=== PATIENT | male | born 1975 | race Two or more races ===

== ENCOUNTER 2025-01-31 21:06 | Emergency (ER) | payer OTHER ==
[~2025-01-31] VITALS: Ht 190.5 cm; Wt 104.5 kg
[2025-01-31 21:59] VITALS: TEMP 98.205296
[2025-01-31 22:24] LABS: PLATELET COUNT (AUTO) 402 K/uL (150-450); RED BLOOD CELL COUNT(AUTO) 4.64 MIL/uL (4.50-5.90); RED CELL DISTRIBUTION WIDTH 13.2 % (11.5-14.5); WHITE BLOOD COUNT (AUTO) 12.8 K/uL (4.5-11.0)
[2025-01-31 22:37] LABS: CALCIUM, TOTAL 9.2 mg/dL (8.8-10.5); CREATININE 2.14 mg/dL (0.60-1.30); GLOMERULAR FILTR. RATE CALC 33 mL/min (>60); GLUCOSE,RANDOM 101 mg/dL (70-110); SODIUM SERUM 143 mmol/L (136-145); UREA NITROGEN, BLOOD 15 mg/dL (7-18)
[2025-01-31 22:38] LABS: TROPONIN I-HIGH SENSITIVITY 75 ng/L (<76)
[2025-01-31 22:59] VITALS: BP 160/95; PULSE 78; RESP 15; O2SAT 100
[2025-01-31 23:42] LABS: TROPONIN I-HIGH SENSITIVITY 60 ng/L (<76)
== END 2025-01-31 23:51 ==
LOC: EMS 21:10
DX: I10 Essential (primary) hypertension (principal); E78.00 Pure hypercholesterolemia, unspecified; F12.90 Cannabis use, unspecified, uncomplicated
CPT/HCPCS: 80048; 84484; 85025; 93005; 99284

== ENCOUNTER 2025-03-04 11:29 | Inpatient (IN) | payer OTHER, MEDICAID ==
[~2025-03-04] VITALS: Ht 190.5 cm; Wt 105.8 kg
[2025-03-04 12:08] LABS: PLATELET COUNT (AUTO) 393 K/uL (150-450); RED BLOOD CELL COUNT(AUTO) 4.33 MIL/uL (4.50-5.90); RED CELL DISTRIBUTION WIDTH 12.4 % (11.5-14.5); WHITE BLOOD COUNT (AUTO) 8.8 K/uL (4.5-11.0)
[2025-03-04 12:15] LABS: CALCIUM, TOTAL 8.7 mg/dL (8.8-10.5); CREATININE 1.88 mg/dL (0.60-1.30); GLOMERULAR FILTR. RATE CALC 38 mL/min (>60); GLUCOSE,RANDOM 102 mg/dL (70-110); SODIUM SERUM 140 mmol/L (136-145); UREA NITROGEN, BLOOD 12 mg/dL (7-18)
[2025-03-04 12:25] LABS: TROPONIN I-HIGH SENSITIVITY 83 ng/L (<76)
[2025-03-04] MEDS: POTASSIUM CHLORIDE 20 MEQ ER TABLET PO ONE (12:38)
[2025-03-04] MEDS: ASPIRIN 325 MG TABLET PO ONE (12:38)
[2025-03-04] MEDS ORDERED: ACETAMINOPHEN 325 MG TABLET PO PRN (13:30)
[2025-03-04] MEDS ORDERED: ONDANSETRON HCL 4 MG/2 ML VIAL IVP PRN (13:30)
[2025-03-04] MEDS: ATORVASTATIN CALCIUM 40 MG TABLET PO ONE (13:32)
[2025-03-04 13:58] LABS: TROPONIN I-HIGH SENSITIVITY 83 ng/L (<76)
[2025-03-04] MEDS: HEPARIN SODIUM,PORCINE 5,000 UNITS/ML VIAL SQ SCH (15:10)
[2025-03-04 15:57] LABS: TROPONIN I-HIGH SENSITIVITY 80 ng/L (<76)
[2025-03-04 17:11] VITALS: BP 137/102; PULSE 71; RESP 17; TEMP 98.2; O2SAT 99
[2025-03-04 19:51] LABS: TROPONIN I-HIGH SENSITIVITY 69 ng/L (<76)
[2025-03-04 20:05] VITALS: BP 148/109; PULSE 69; RESP 19; TEMP 97.9; O2SAT 94
[2025-03-04] MEDS: DOCUSATE SODIUM 100 MG CAPSULE PO SCH (20:49)
[2025-03-04] MEDS: SODIUM CHLORIDE 0.9% 1,000 ML IV ONE (22:47)
[2025-03-04 23:58] VITALS: BP 125/85; PULSE 62; RESP 18; TEMP 97.7; O2SAT 99
[2025-03-05 04:11] VITALS: BP 135/92; PULSE 64; RESP 18; TEMP 97.3; O2SAT 97
[2025-03-05 07:16] LABS: PLATELET COUNT (AUTO) 337 K/uL (150-450); RED BLOOD CELL COUNT(AUTO) 3.86 MIL/uL (4.50-5.90); RED CELL DISTRIBUTION WIDTH 12.7 % (11.5-14.5); WHITE BLOOD COUNT (AUTO) 5.8 K/uL (4.5-11.0)
[2025-03-05 07:18] LABS: CALCIUM, TOTAL 8.2 mg/dL (8.8-10.5); CREATININE 1.58 mg/dL (0.60-1.30); GLOMERULAR FILTR. RATE CALC 46.0 mL/min (>60); GLUCOSE,RANDOM 80.0 mg/dL (70-110); SODIUM SERUM 142.0 mmol/L (136-145); UREA NITROGEN, BLOOD 12.0 mg/dL (7-18)
[2025-03-05] MEDS: ATORVASTATIN CALCIUM 40 MG TABLET PO SCH (08:16)
[2025-03-05] MEDS: ASPIRIN 81 MG CHEWABLE TABLET PO SCH (08:16)
[2025-03-05 08:46] VITALS: BP 125/89; PULSE 58; RESP 19; TEMP 98; O2SAT 98
[2025-03-05 11:46] VITALS: BP 129/86; PULSE 63; RESP 18; TEMP 97.8; O2SAT 100
[2025-03-05 14:57] VITALS: BP 137/96; PULSE 67; RESP 19; TEMP 98; O2SAT 98
[2025-03-05 20:00] VITALS: BP 152/96; PULSE 65; RESP 18; TEMP 99; O2SAT 97
[2025-03-05 20:22] VITALS: BP 156/89; PULSE 65; RESP 19; TEMP 98.2; O2SAT 100
[2025-03-05] MEDS: PB/HYOSCY/ATR/SCOP/LIDO/MAALOX 55 ML BOTTLE PO ONE (20:28)
[2025-03-06] VITALS (8 sets, daily range): BP systolic 145–165; BP diastolic 86–114; PULSE 63–89; RESP 18–20; TEMP 97.5–98.4; O2SAT 94–100
[2025-03-06 05:51] LABS: PLATELET COUNT (AUTO) 361 K/uL (150-450); RED BLOOD CELL COUNT(AUTO) 4.14 MIL/uL (4.50-5.90); RED CELL DISTRIBUTION WIDTH 12.9 % (11.5-14.5); WHITE BLOOD COUNT (AUTO) 7.1 K/uL (4.5-11.0)
[2025-03-06 06:01] LABS: CALCIUM, TOTAL 8.7 mg/dL (8.8-10.5); CREATININE 1.78 mg/dL (0.60-1.30); GLOMERULAR FILTR. RATE CALC 40.0 mL/min (>60); GLUCOSE,RANDOM 84.0 mg/dL (70-110); SODIUM SERUM 140.0 mmol/L (136-145); UREA NITROGEN, BLOOD 15.0 mg/dL (7-18)
[2025-03-06] MEDS: NITROGLYCERIN 2% (1 GM=INCH) OINTMENT PACKET TP SCH (16:26)
[2025-03-06] MEDS: SODIUM CHLORIDE 0.9% 500 ML IV ONE (16:26)
[2025-03-06] MEDS: PB/HYOSCY/ATR/SCOP/LIDO/MAALOX 55 ML BOTTLE PO ONE (21:56)
[2025-03-07] VITALS (16 sets, daily range): BP systolic 122–181; BP diastolic 83–108; PULSE 56–79; RESP 16–20; TEMP 98.1–98.8; O2SAT 95–99
[2025-03-07 06:21] LABS: CALCIUM, TOTAL 8.5 mg/dL (8.8-10.5); CREATININE 1.62 mg/dL (0.60-1.30); GLOMERULAR FILTR. RATE CALC 45.0 mL/min (>60); GLUCOSE,RANDOM 87.0 mg/dL (70-110); SODIUM SERUM 140.0 mmol/L (136-145); UREA NITROGEN, BLOOD 12.0 mg/dL (7-18)
[2025-03-07 07:26] LABS: PLATELET COUNT (AUTO) 398 K/uL (150-450); RED BLOOD CELL COUNT(AUTO) 4.01 MIL/uL (4.50-5.90); RED CELL DISTRIBUTION WIDTH 12.8 % (11.5-14.5); WHITE BLOOD COUNT (AUTO) 6.6 K/uL (4.5-11.0)
[2025-03-07] MEDS ORDERED: IOHEXOL 300 MG/ML 100 ML VIAL ONE (12:02)
[2025-03-07] MEDS ORDERED: VERAPAMIL HCL 2.5 MG/ML 2 ML VIAL ONE (12:02)
[2025-03-07] MEDS ORDERED: SODIUM BICARBONATE 50 MEQ/50 ML VIAL ONE (12:02)
[2025-03-07] MEDS ORDERED: LIDOCAINE/PF 1% 30 ML VIAL ONE (12:02)
[2025-03-07] MEDS ORDERED: HEPARIN SODIUM 1000 UNITS/NS 1,000 ML ONE (12:03)
[2025-03-07] MEDS ORDERED: NITROGLYCERIN 50 MG/D5% WATER 250 ML ONE (12:03)
[2025-03-07] MEDS ORDERED: FentaNYL CITRATE PF 100 MCG/2 ML VIAL ONE (13:07)
[2025-03-07] MEDS ORDERED: MIDAZOLAM HCL 2 MG/2 ML VIAL ONE (13:07)
[2025-03-07] MEDS: HEPARIN SODIUM 1000 UNITS/NS 1,000 ML IARTER ONE (13:29)
[2025-03-07] MEDS: SODIUM CHLORIDE 0.9% 500 ML IV ONE (13:30)
[2025-03-07] MEDS: IOHEXOL 300 MG/ML 100 ML VIAL ICOR ONE (13:30)
[2025-03-07] MEDS: LIDOCAINE 1% 30 ML/SOD BICARB 8.4% 4 ML SQ ONE (13:30)
[2025-03-07] MEDS: HEPARIN SODIUM,PORCINE 1,000 UNITS/ML 10 ML VIAL IVP ONE (13:31)
[2025-03-07] MEDS: VERAPAMIL HCL 2.5 MG/ML 2 ML VIAL IARTER ONE (13:31)
[2025-03-07] MEDS: NITROGLYCERIN/D5W 50 MG/250 ML IV BOTTLE IARTER ONE (13:31)
[2025-03-07] MEDS: FentaNYL CITRATE PF 100 MCG/2 ML VIAL IVP ONE (13:31)
[2025-03-07] MEDS: MIDAZOLAM HCL 2 MG/2 ML VIAL IVP ONE (13:32)
[2025-03-07] MEDS: PB/HYOSCY/ATR/SCOP/LIDO/MAALOX 55 ML BOTTLE PO ONE (17:19)
[2025-03-08] VITALS: BP 130/75; PULSE 63
[2025-03-08 00:15] VITALS: BP 130/75; PULSE 63; RESP 18; TEMP 98.2; O2SAT 94
[2025-03-08 06:19] VITALS: BP 152/91; PULSE 61; RESP 18; TEMP 97.9; O2SAT 98
[2025-03-08 06:20] LABS: PLATELET COUNT (AUTO) 406 K/uL (150-450); RED BLOOD CELL COUNT(AUTO) 4.07 MIL/uL (4.50-5.90); RED CELL DISTRIBUTION WIDTH 12.9 % (11.5-14.5); WHITE BLOOD COUNT (AUTO) 8.0 K/uL (4.5-11.0)
[2025-03-08 06:30] VITALS: BP 152/91; PULSE 61
[2025-03-08 06:39] LABS: CALCIUM, TOTAL 9.0 mg/dL (8.8-10.5); CREATININE 1.76 mg/dL (0.60-1.30); GLOMERULAR FILTR. RATE CALC 41.0 mL/min (>60); GLUCOSE,RANDOM 84.0 mg/dL (70-110); SODIUM SERUM 141.0 mmol/L (136-145); UREA NITROGEN, BLOOD 12.0 mg/dL (7-18)
[2025-03-08 07:30] VITALS: BP 140/99; PULSE 62; RESP 18; TEMP 97.9; O2SAT 97
[2025-03-08 11:48] VITALS: BP 136/88; PULSE 64; RESP 18; TEMP 98; O2SAT 95
[2025-03-08] MEDS ORDERED: ATOR40TA71 PO (12:31)
[2025-03-08] MEDS ORDERED: CARV12 PO (12:31)
[2025-03-08] MEDS ORDERED: AMLO-258 PO (12:31)
[2025-03-08] MEDS ORDERED: ASPI-1450 PO (12:31)
== END 2025-03-08 13:00 | disposition home or self-care (01) | DRG 280 ==
LOC: EMS 11:29 → EDH 13:18 → 5N 17:00
PROVIDERS: ADMIT Internal Medicine; ATTEND Internal Medicine
PROC: B2111ZZ Fluoroscopy of Multiple Coronary Arteries using Low Osmolar Contrast (ICD-10-PCS; principal; 2025-03-06)
PROC: 4A023N7 Measurement of Cardiac Sampling and Pressure, Left Heart, Percutaneous Approach (ICD-10-PCS; 2025-03-06)
DX: I21.4 Non-ST elevation (NSTEMI) myocardial infarction (principal); N17.0 Acute kidney failure with tubular necrosis; I16.1 Hypertensive emergency; E78.00 Pure hypercholesterolemia, unspecified; I10 Essential (primary) hypertension; E87.6 Hypokalemia; Z79.899 Other long term (current) drug therapy
CPT/HCPCS: 71045; 80048; 83735; 84484; 85025; 85610; 93005; 93306; 99285; J0360; J1644; J2250; J3010; J3490; J7030; J7040; Q9967; 36415-L1; 36415-TC; Z7610